=== PATIENT | male | born 1965 | race American Indian/Alaskan Native ===

== ENCOUNTER 2019-11-26 10:20 | Outpatient (CLI) | payer BC ==
[2019-11-26 10:54] LABS: Basophils # (Auto) 0.1 K/mm3 (0.0-0.1); Basophils % (Auto) 1.2 % (0.0-1.8); Eosinophils # (Auto) 0.1 K/mm3 (0.0-0.4); Eosinophils % (Auto) 2.2 % (0.0-4.3); Hemoglobin 13.4 gm/dl (11.8-15.2); Lymphocytes # (Auto) 2.1 K/mm3 (1.2-5.4); Lymphocytes % (Auto) 32.1 % (13.4-35.0); Mean Corpuscular HGB Conc 33 % (32-34); Mean Corpuscular Volume 86 fl (84-94); Monocytes # (Auto) 0.4 K/mm3 (0.0-0.8); Monocytes % (Auto) 5.7 % (0.0-7.3); Platelet Count 352 K/mm3 (140-440); Red Blood Count 4.78 M/mm3 (3.65-5.03); Red Cell Distribution Width 14.7 % (13.2-15.2)
[2019-11-26 10:56] LABS: Bilirubin,Urine NEG (Negative); Blood,Urine NEG (Negative); Color,Urine Yellow (Yellow); Mucus,Urine FEW /HPF; Protein,Urine <15 mg/dL mg/dL (Negative); Urobilinogen,Urine < 2.0 mg/dL (<2.0); WBC,Urine < 1.0 /HPF (0.0-6.0)
[2019-11-26 11:13] LABS: Alanine Aminotransferase 30 units/L (7-56); Albumin 4.2 g/dL (3.9-5); BUN/Creatinine Ratio 13; Blood Urea Nitrogen 10 mg/dL (9-20); Calcium 9.6 mg/dL (8.4-10.2); Chol/HDL Ratio 4.12 %; HDL Cholesterol 48 mg/dL (40-59); Hemolysis Index 3; LDL Cholesterol,Direct 142 mg/dL (50-130)
[2019-11-29 14:14] LABS: Vitamin D, 25-OH, D2 <4 ng/mL
== END 2019-11-26 10:21 | disposition home or self-care (01) ==
LOC: LAB 10:20
PROVIDERS: ATTEND Internal Medicine
DX: Z00.00 Encounter for general adult medical examination without abnormal findings (principal); Z13.29 Encounter for screening for other suspected endocrine disorder; Z13.21 Encounter for screening for nutritional disorder; Z13.220 Encounter for screening for lipoid disorders; N39.0 Urinary tract infection, site not specified; R39.11 Hesitancy of micturition
CPT/HCPCS: 36415; 80053; 80061; 81001; 82306; 82607; 83036; 84153; 84443; 85025

== ENCOUNTER 2019-12-06 13:27 | Outpatient (CLI) | payer BC ==
--- NOTE | 2019-12-06 15:42 | XRay Report ---
RIGHT HIP 2 VIEWS INDICATION / CLINICAL INFORMATION: Right hip pain. COMPARISON: None available. FINDINGS: BONES / JOINT(S): There are mild degenerative changes involving the right hip, more prominent superio rly. There are also similar-appearing degenerative changes involving the left hip. There is internal fixation of the left femur. Mild lower lumbar spondylosis is present. There is no evidence of fractur e, subluxation or destructive lesion. SOFT TISSUES: No significant abnormality. ADDITIONAL FINDINGS: None. IMPRESSION: Mild degenerative changes involving both hips. Signer Name: Eddy Francisco MD Signed: 12/06/2019 3:37 PM Workstation Name: [id number]
== END 2019-12-06 13:28 | disposition home or self-care (01) ==
LOC: XRAY 13:27
PROVIDERS: ATTEND Internal Medicine
DX: M16.11 Unilateral primary osteoarthritis, right hip (principal)

== ENCOUNTER 2020-03-25 05:53 | Day surgery (SDC) | payer BC ==
[~2020-03-25 05:53] MED LIST: LACTATED RINGERS 1,000 ML IV SCH
[2020-03-25] MEDS ORDERED: MIDAZOLAM 2 MG/2 ML INJ IV NR (06:52)
--- NOTE | 2020-03-25 06:57 | Anesthesia Day of Surgery ---
Anesthesia Day of Surgery - Day of Surgery Patient Examined: Yes Patient H&P Reviewed: Yes Patient is NPO: Yes Beta Blockers: Yes
--- NOTE | 2020-03-25 06:57 | Anesthesia Consultation ---
Anesthesia Consult and Med Hx Date of service: 03/25/20 - Airway Anesthetic Teeth Evaluation: Poor, Chipped ROM Head & Neck: Adequate Mental/Hyoid Distance: Adequate Mallampati Class: Class II Intubation Access Assessment: Good - Pulmonary Exam CTA: Yes - Cardiac Exam Cardiac Exam: RRR - Pre-Operative Health Status ASA Pre-Surgery Classification: ASA3 Proposed Anesthetic Plan: General - Pulmonary Hx Smoking: No Hx Sleep Apnea: No (HARSHIL PRE SCREEN HIGH RISK) - Cardiovascular System Hx Hypertension: Yes (X 8 YRS) Hx Cardia Arrhythmia: Yes (h/o tachcardia, controlled with medications, denies h/o chest pain) - Central Nervous System Hx Psychiatric Problems: No - Other Systems Hx Cancer: No
[2020-03-25] MEDS ORDERED: ceFAZolin/STERILE WATER 2 GM/20 ML SYRINGE IV NR (07:00)
[2020-03-25] MEDS ORDERED: LIDOCAINE MPF (2%) 20 MG/1 ML VIAL 5 ML ONE (07:20)
[2020-03-25] MEDS ORDERED: propofoL 200 MG/20 ML VIAL IV ONE (07:20)
[2020-03-25] MEDS ORDERED: HYDROmorphone 1 MG/1 ML INJ ONE (07:20)
[2020-03-25] MEDS ORDERED: ONDANSETRON 4 MG/2 ML INJ ONE (08:23)
[2020-03-25] MEDS ORDERED: WATER FOR IRRIG STERILE 2000 ML IR ONE (08:25)
--- NOTE | 2020-03-25 08:27 | Short Stay Summary ---
Short Stay Documentation Date of service: 03/25/20 - History H&P: obtained from office - Allergies and Medications Current Medications: Allergies No Known Allergies Allergy (Verified 03/20/20 14:41) Home Medications Medication Instructions Recorded Confirmed Last Taken Type Amlodipine Besylate [Norvasc] 5 mg PO DAILY 03/20/20 03/20/20 03/25/20 04:00 History Aspirin [Adult Aspirin] 81 mg PO DAILY 03/20/20 03/25/20 1 Week Ago History ~03/18/20 Valsartan [Diovan] 160 mg PO QDAY 03/20/20 03/20/20 03/25/20 04:00 History carvediloL [Coreg] 6.25 mg PO BID 03/20/20 03/20/20 03/25/20 04:00 History Active Medications Cefazolin Sodium (Cefazolin/Sterile Water 2 Gm/20 Ml Syringe) 2 gm IV PREOP NR Stop: 03/25/20 10:00 Lactated Ringer's (Lactated Ringers) 1,000 mls @ 125 mls/hr IV DIRECT KYLIE Last Admin: 03/25/20 06:55 Dose: 125 mls/hr Documented by: Midazolam HCl (Midazolam 2 Mg/2 Ml Inj) 2 mg IV ONCE NR Stop: 03/25/20 12:00 Last Admin: 03/25/20 06:58 Dose: 2 mg Documented by: - Brief post op/procedure progress note Date of procedure: 03/25/20 Pre-op diagnosis: bph, elevated psa Post-op diagnosis: same Procedure: cysto, rpg, pus 50cc, 12 core bx prostate Anesthesia: GETA Surgeon: BIANCA YU Estimated blood loss: minimal Pathology: list (prostate cores) Specimen disposition: to lab Condition: stable - Hospital course Hospital course: bactrim,norco,post op info on chart - Disposition Condition at discharge: Stable Disposition: DC-01 TO HOME OR SELFCARE Short Stay Discharge Plan Follow up with: MIGDALIA CARMEN MD [Primary Care Provider] - 7 Days
--- NOTE | 2020-03-25 08:37 | Operative Report ---
PREOPERATIVE DIAGNOSES: Elevated prostate-specific antigen of 6, benign prostatic hypertrophy. POSTOPERATIVE DIAGNOSES: Elevated prostate-specific antigen of 6, benign prostatic hypertrophy. PROCEDURE: Cystoscopy, bilateral retrograde pyelograms, transrectal ultrasound, biopsy of prostate (50 mL). SURGEON: Andre Medina MD ANESTHESIA: General. ESTIMATED BLOOD LOSS: Minimal. FLUIDS: Crystalloid. COMPLICATIONS: No complications. INDICATIONS: This patient is a 54-year-old gentleman seen in the office for an elevated PSA at 6 and mild prostate obstruction. He presents now for surgical intervention. DESCRIPTION OF PROCEDURE: The patient was taken to the operative suite, placed in a supine position. After adequate general anesthesia, placed in a dorsal lithotomy position, prepped and draped in a sterile fashion. Pancystourethroscopy was performed with a 22-Scottish [place]orz cystoscope, no urethral abnormalities. His prostate displayed mild bilobar obstruction. Bladder, no tumors or stones were noted. Both ureteral orifices in normal position. Bilateral retrograde pyelograms were obtained with an 8-Scottish [place] catheter and 8 mL of contrast with no filling defects or obstruction. Next, using a transrectal ultrasound, sagittal and transverse imaging was taken. No suspicious lesions could be appreciated. Prostate volume 50 mL. 12-core biopsy was taken, at the base, 4 at mid level and then 4 at the apex. Rectal exam was benign. His bladder was drained. He was extubated and taken to recovery room in stable condition. He will go home on Bactrim and [place]. JOB# [id number] [facility]
--- NOTE | 2020-03-25 08:55 | Fluoroscopy Report ---
CLINICAL INDICATION: ELEVATED PSA BPH TECHNICAL DATA: C-arm imaging was performed. Fluoroscopy time 4 seconds and 4 static images performed FINDINGS: C-arm imaging was performed. Retrograde pyelogram performed with excellent imaging of the left collec ting system. Small calyceal diverticulum is noted on the left IMPRESSION: Retrograde pyelogram as noted Signer Name: Castro Orosco MD Signed: 03/25/2020 8:50 AM Workstation Name: [id number]
--- NOTE | 2020-03-25 08:58 | Ultrasound Report ---
ULTRASOUND TRANSRECTAL HISTORY: Guidance for prostate biopsy, elevated PSA TECHNIQUE: Transrectal ultrasound. FINDINGS: Transrectal ultrasound guidance was provided by radiology during prostate biopsy by urology. Prostate volume measures 49.5 cc. The prosthetic urethra appears prominent which could represent previous TUR P changes. Please correlate with the procedural report as needed. IMPRESSION: Successful prostate biopsy under transrectal ultrasound guidance. Signer Name: Max Blackman Jr, MD Signed: 03/25/2020 8:53 AM Workstation Name: [id number]
[2020-03-25 09:47] VITALS: BP 119/72
--- NOTE | 2020-03-25 10:32 | Post Anesthesia Evaluation ---
- Post Anesthesia Evaluation Patient Participated: Yes Airway Patent: Yes Stable Respiratory Function: Yes Nausea/Vomiting: No Temp > 96.8F: Yes Pain Manageable: Yes Adequeate Hydration: Yes Anesthesia Complications: No Block Receding Appropriately: Not Applicable Patient on Ventilator: No
== END 2020-03-25 05:54 | disposition home or self-care (01) ==
LOC: OR 05:53
PROVIDERS: ATTEND Urology
DX: R97.20 Elevated prostate specific antigen [PSA] (principal); N40.0 Benign prostatic hyperplasia without lower urinary tract symptoms; I10 Essential (primary) hypertension; M19.90 Unspecified osteoarthritis, unspecified site; Z86.19 Personal history of other infectious and parasitic diseases; Z98.890 Other specified postprocedural states; Z79.899 Other long term (current) drug therapy; Z79.82 Long term (current) use of aspirin
CPT/HCPCS: 52005; 55700; 74420; 76872; 88305; 88344; A4217; J0690; J1170; J2250; J2405; J2704; Q9967; U0003

== ENCOUNTER 2020-04-14 07:07 | Outpatient (CLI) | payer BC ==
[2020-04-14 08:04] LABS: Chol/HDL Ratio 3.4 %
== END 2020-04-14 07:08 | disposition home or self-care (01) ==
LOC: LAB 07:07
PROVIDERS: ATTEND Internal Medicine
DX: E78.5 Hyperlipidemia, unspecified (principal); E55.9 Vitamin D deficiency, unspecified; D51.9 Vitamin B12 deficiency anemia, unspecified; R73.03 Prediabetes
CPT/HCPCS: 36415; 80061; 82306; 82607; 83036

== ENCOUNTER 2020-05-29 11:42 | Outpatient (CLI) | payer BC | END 2020-05-29 11:43 | disposition home or self-care (01) | LOC: LAB 11:42 | PROVIDERS: ATTEND Urology | DX: C61 Malignant neoplasm of prostate (principal) | CPT/HCPCS: 36415; 84153 ==

== ENCOUNTER 2020-08-24 08:06 | Outpatient (CLI) | payer BC ==
[2020-08-25 01:20] LABS: Chol/HDL Ratio 4.18 %
[2020-08-27 18:32] LABS: Vitamin D, 25-OH, D2 6 ng/mL
== END 2020-08-24 08:07 | disposition home or self-care (01) ==
LOC: LAB 08:06
PROVIDERS: ATTEND Internal Medicine
DX: E78.5 Hyperlipidemia, unspecified (principal); E55.9 Vitamin D deficiency, unspecified; R73.03 Prediabetes
CPT/HCPCS: 36415; 80061; 82306; 83036

== ENCOUNTER 2020-08-28 08:48 | Outpatient (CLI) | payer BC | END 2020-08-28 08:49 | disposition home or self-care (01) | LOC: LAB 08:48 | PROVIDERS: ATTEND Urology | DX: N40.0 Benign prostatic hyperplasia without lower urinary tract symptoms (principal) | CPT/HCPCS: 36415; 84153 ==

== ENCOUNTER 2020-09-08 07:34 | Outpatient (CLI) | payer BC ==
--- NOTE | 2020-09-08 10:13 | Magnetic Resonance Report ---
MRI RIGHT HIP WITHOUT CONTRAST INDICATION / CLINICAL INFORMATION: INJURY OF FEMORAL NERVE AT HIP AND THIGH LEVEL, groin area pain rt hip. TECHNIQUE: Multiplanar, multisequence MR images were obtained. No contrast used. COMPARISON: Radiographs dated 12/06/19 FINDINGS: ACETABULAR LABRUM: Degenerative fraying without discrete tear. ARTICULAR CARTILAGE: Moderate chondrosis and degenerative arthrosis especially at the superolateral h ip joint. LIGAMENTUM TERES: No significant abnormality. JOINT SPACE AND CAPSULE: No joint effusion or synovitis. No intra-articular bodies. GLUTEAL MUSCLES/TENDONS: No significant abnormality. ILIOPSOAS MUSCLES/TENDON: No significant abnormality. PROXIMAL HAMSTRING TENDONS: No significant abnormality. GROIN MUSCLES/TENDONS: No significant abnormality. SOFT TISSUES: No significant abnormality. Specifically, no nerve abnormality of the right hip. BONES: No significant bone marrow edema. No fracture. Moderately prominent pincer deformity of the s uperolateral acetabulum as seen on radiographs. Incidental note of contralateral left femoral intrame dullary pin. SACROILIAC JOINT(S): No significant abnormality. LOWER LUMBAR SPINE: No significant abnormality of visualized lower lumbar spine. SOFT TISSUE WITHIN PELVIS: No acute findings. ADDITIONAL FINDINGS: None. IMPRESSION: 1. No acute MR abnormality of the right hip. 2. Moderate right hip degenerative arthrosis with pincer deformity which can contribute to femoroacet abular impingement in the appropriate clinical setting. Signer Name: Segundo Muhammad MD Signed: 09/08/2020 10:08 AM Workstation Name: [id number]
== END 2020-09-08 07:35 | disposition home or self-care (01) ==
LOC: MRI 07:34
PROVIDERS: ATTEND Internal Medicine
DX: S74.10XA Injury of femoral nerve at hip and thigh level, unspecified leg, initial encounter (principal); M16.11 Unilateral primary osteoarthritis, right hip; X58.XXXA Exposure to other specified factors, initial encounter; Y93.89 Activity, other specified; Y92.89 Other specified places as the place of occurrence of the external cause; Y99.8 Other external cause status
CPT/HCPCS: 73721

== ENCOUNTER 2020-11-27 09:36 | Outpatient (CLI) | payer BC | END 2020-11-27 09:37 | disposition home or self-care (01) | LOC: LAB 09:36 | PROVIDERS: ATTEND Urology | DX: C61 Malignant neoplasm of prostate (principal) | CPT/HCPCS: 36415; 84153 ==

== ENCOUNTER 2020-12-04 07:01 | Outpatient (CLI) | payer BC ==
[2020-12-04] MEDS ORDERED: LIDOCAINE (2%) 20 MG/1 ML VIAL 20 ML MDV INFILTRATI ONE (07:42)
[2020-12-04] MEDS ORDERED: methylPREDNISolone ACETATE 40 MG/1 ML INJ INTRA-ARTI SCH (08:00)
--- NOTE | 2020-12-04 08:46 | Short Stay Summary ---
Short Stay Documentation Date of service: 12/04/20 Narrative H&P: chronic right hip pain - History Principal diagnosis: right hip pain, osteoarthritis - Allergies and Medications Current Medications: Allergies No Known Allergies Allergy (Verified 03/20/20 14:41) Home Medications Medication Instructions Recorded Confirmed Last Taken Type Amlodipine Besylate [Norvasc] 5 mg PO DAILY 03/20/20 03/20/20 03/25/20 04:00 History Aspirin [Adult Aspirin] 81 mg PO DAILY 03/20/20 03/25/20 1 Week Ago History ~03/18/20 Valsartan [Diovan] 160 mg PO QDAY 03/20/20 03/20/20 03/25/20 04:00 History carvediloL [Coreg] 6.25 mg PO BID 03/20/20 03/20/20 03/25/20 04:00 History - Physical exam General appearance: no acute distress Extremities: no ischemia, pulses intact, No edema, Full ROM - Brief post op/procedure progress note Date of procedure: 12/04/20 Pre-op diagnosis: right hip pain, arthritis Post-op diagnosis: same Procedure: right hip injection Anesthesia: local Findings: mild arthritic changes Surgeon: CONNIE SUMNER Estimated blood loss: none Pathology: none Condition: stable - Hospital course Hospital course: uneventful - Disposition Condition at discharge: Good Disposition: 01 HOME / SELF CARE / HOMELESS Short Stay Discharge Plan Follow up with: MIGDALIA CARMEN MD [Primary Care Provider] - 7 Days
--- NOTE | 2020-12-04 09:52 | Fluoroscopy Report ---
ARTHROGRAM OF THE RIGHT HIP HISTORY: UNILATERAL PRIMARY OSTEOARTHRITIS. COMPARISON: None. CONSENT: The risks,benefits, and alternatives of theprocedure were discussed with the patient who agr eed toproceed. TECHNIQUE: The patient was placed supine on the fluoroscopy table. The right hip joint was identifie d and overlying skin demarcated under fluoroscopic guidance. Area was prepped and draped in the usual sterile fashion. Time-out was performed. Skin and subcutaneous tissues were anesthetized with lid ocaine. A 22-gauge spinal needle was placed into the joint space under fluoroscopic guidance. A small amount of Omnipaque 180 contrast agent was injected to ensure intra-articular location. A mixture containing 1 cc of 40 mg of Depo-Medrol and 3 cc of 2% lidocaine were injected into the right hip joint as per the ordering physician's request. The patient tolerated the procedure without difficulty. FLUOROSCOPIC TIME: 1.3 minutes # IMAGES: 6 IMPRESSION: Successful fluoroscopy-guided right hip injection as described. Signer Name: Max Blackman Jr, MD Signed: 12/04/2020 9:47 AM Workstation Name: [id number]
== END 2020-12-04 07:02 | disposition home or self-care (01) ==
LOC: FLUORO 07:01
PROVIDERS: ATTEND Orthopaedic Surgery
DX: M16.11 Unilateral primary osteoarthritis, right hip (principal); Z79.899 Other long term (current) drug therapy
CPT/HCPCS: 27093; 73525; J1030; Q9965

== ENCOUNTER 2020-12-09 08:46 | Outpatient (CLI) | payer BC ==
[2020-12-09 09:18] LABS: Basophils # (Auto) 0.1 K/mm3 (0.0-0.1); Basophils % (Auto) 0.7 % (0.0-1.8); Eosinophils # (Auto) 0.1 K/mm3 (0.0-0.4); Eosinophils % (Auto) 1.2 % (0.0-4.3); Hematocrit 43.5 % (35.5-45.6); Lymphocytes # (Auto) 2.1 K/mm3 (1.2-5.4); Lymphocytes % (Auto) 27.6 % (13.4-35.0); Mean Corpuscular HGB Conc 32 % (32-34); Mean Corpuscular Volume 85 fl (84-94); Monocytes # (Auto) 0.4 K/mm3 (0.0-0.8); Monocytes % (Auto) 5.1 % (0.0-7.3); Platelet Count 389 K/mm3 (140-440); Red Blood Count 5.11 M/mm3 (3.65-5.03); Red Cell Distribution Width 14.8 % (13.2-15.2)
[2020-12-09 09:42] LABS: Alanine Aminotransferase 28 units/L (7-56); Albumin 4.1 g/dL (3.9-5); BUN/Creatinine Ratio 20; Blood Urea Nitrogen 14 mg/dL (9-20); Calcium 9.4 mg/dL (8.4-10.2); Chol/HDL Ratio 3.68 %; HDL Cholesterol 50 mg/dL (40-59); Hemolysis Index 7; LDL Cholesterol,Direct 131 mg/dL (50-130)
== END 2020-12-09 08:47 | disposition home or self-care (01) ==
LOC: LAB 08:46
PROVIDERS: ATTEND Internal Medicine
DX: Z00.00 Encounter for general adult medical examination without abnormal findings (principal); Z13.29 Encounter for screening for other suspected endocrine disorder; E11.9 Type 2 diabetes mellitus without complications; E78.5 Hyperlipidemia, unspecified; R97.20 Elevated prostate specific antigen [PSA]; E55.9 Vitamin D deficiency, unspecified
CPT/HCPCS: 36415; 80053; 80061; 83036; 84443; 85025

== ENCOUNTER 2020-12-22 10:12 | Outpatient (CLI) | payer BC ==
--- NOTE | 2020-12-22 11:06 | XRay Report ---
RIGHT SHOULDER HISTORY: Pain. COMPARISON: None. TECHNIQUE: 3 views of the right shoulder were obtained. FINDINGS: Bones: No evidence of acute fracture or dislocation. Ossific densities along the posterior lateral as pect of the proximal humerus is noted. This could represent the insertion site of the deltoid muscle. Joint spaces: Maintained. Soft tissues: No significant abnormality. Additional findings: None. IMPRESSION: Right shoulder without evidence of acute osseous injury. Likely an incidental finding is ossification along the cortex of the posterior lateral aspect of the proximal humerus. This is near the insertion site of the deltoid muscle and could represent some degr ee of enthesopathy. Recommend clinical correlation with site of pain. If there is pain in this region or additional evaluation is clinically indicated, a nonemergent CT or MRI may be considered. Signer Name: Montana Trevino MD Signed: 12/22/2020 11:02 AM Workstation Name: [id number]
== END 2020-12-22 10:13 | disposition home or self-care (01) ==
LOC: XRAY 10:12
PROVIDERS: ATTEND Internal Medicine
DX: M25.511 Pain in right shoulder (principal)

== ENCOUNTER 2021-03-03 09:49 | Outpatient (CLI) | payer BC | END 2021-03-03 09:50 | disposition home or self-care (01) | LOC: LAB 09:49 | PROVIDERS: ATTEND Urology | DX: C61 Malignant neoplasm of prostate (principal) | CPT/HCPCS: 36415; 84153 ==

== ENCOUNTER 2021-03-09 07:17 | Outpatient (CLI) | payer BC ==
--- NOTE | 2021-03-09 10:12 | Magnetic Resonance Report ---
EXAMINATION: MR UE joint RT woe con. HISTORY: UNSPECIFIED INJURY OF MUSCLES/TENDONS OF ROTATOR CUFF, DIFFICULTY LIFTING ARM ABOVE HEAD & S HOULDER PAIN TECHNIQUE: Multiplanar, multisequence MR images of the shoulder obtained without intravenous contrast . COMPARISON: 12/22/2020. FINDINGS: Muscles: Signal intensity and volume is preserved. Acromioclavicular joint: Moderate osteoarthritis. Subacromial/ subdeltoid bursa: Trace fluid accumulation. Rotator cuff: There is tendinosis with partial-thickness articular sided tearing of the leading edge of the supraspinatus tendon at the footprint. Mild tendinosis of the infraspinatus. Teres minor is in tact. Subscapularis is intact. Long head biceps tendon: The long head biceps tendon is appropriately positioned within the bicipital groove. There is increased signal within the intra-articular portion, consistent with tendinosis, wi thout discrete tear. Glenohumeral joint: No discrete labral abnormality. No full thickness chondral defect allowing for li mitations. No significant effusion. Bone: Marrow signal intensity is unremarkable. IMPRESSION: 1. Tendinosis of the supraspinatus with partial thickness articular sided tearing of the leading edge at the footprint. 2. Prominent tendinosis of the intra-articular long head biceps tendon. 3. Mild tendinosis of the infraspinatus without tear. 4. Moderate AC osteoarthritis. Signer Name: Chilango Mathias MD Signed: 03/09/2021 10:08 AM Workstation Name: [email or web address]
== END 2021-03-09 07:18 | disposition home or self-care (01) ==
LOC: MRI 07:17
PROVIDERS: ATTEND Internal Medicine
DX: S46.001A Unspecified injury of muscle(s) and tendon(s) of the rotator cuff of right shoulder, initial encounter (principal); S46.811A Strain of other muscles, fascia and tendons at shoulder and upper arm level, right arm, initial encounter; M19.011 Primary osteoarthritis, right shoulder; X58.XXXA Exposure to other specified factors, initial encounter; Y93.89 Activity, other specified; Y92.89 Other specified places as the place of occurrence of the external cause; Y99.8 Other external cause status

== ENCOUNTER 2021-03-30 07:18 | Outpatient (CLI) | payer BC ==
--- NOTE | 2021-03-30 10:59 | Nuclear Medicine Report ---
APPROVED REPORT Exam: Nuclear Stress Test Indication: Chest pain [facility] #: STRESS LAB 2 Ht: 6 ft 0 in Wt: 256 lbs BSA: 2.37 m2 HR: 70 bpmBP: 135/83 mmHgBMI: 34.71 Rhythm: SINUS RHYTHM WITH SINUS ARRHYTHMIA RSR WITH RIGHT VENTICULAR CONDUCTION DELAY Stress Test Details Stress Test: Exercise stress testing was performed using a Christo protocol. HR Resting HR: 70 bpm Max HR Achieved: 150 bpm Max Heart Rate (APMHR): 165.078617 bpm Target HR (85% APMHR): 140.770005 bpm % of APMHR: 90.91 Recovery HR: 95 bpm BP Resting BP: 135/83 mmHg Max BP: 206/89 mmHg Recovery BP: 179/85 mmHg ECG Resting ECG: SINUS RHYTHM WITH SINUS ARRHYTHMIA RSR CONSISTENT WITH RIGHT VENTICULAR CODUCTION DELAY Stress ECG: Sinus Tachycardia Clinical Reason for Termination: Maximal effort Stress Symptoms: None Exercise duration: 9 min 0 sec Exercise capacity: 10.3 METs Overall Exercise Capacity for Age: Good Angina Score: None NM EXAM: Myocardial Perfusion REST/STRESS Imaging Protocol: Rest Tc-99m/Stress Tc-99m 1 day Resting Data Rest SPECT myocardial perfusion imaging was performed in supine position 45 minutes following the intravenous injection of 10 mCi of Tc-99m Myoview. Time of rest injection: 729 Date: 03/30/2021 Exercise Stress At peak stress, the patient was injected intravenously with 28mCi of Tc-99m Myoview. Time of stress injection: 909 Date: 03/30/2021 Gated Stress SPECT was performed 30 minutes after stress injection. The images were gated to evaluate regional wall motion and calculate left ventricular ejection fraction. Study Quality Study: excellent Lung Uptake: Normal Study Data TID = 0.92. Perfusion Wall Motion The rest and stress images show normal left ventricular wall motion. Nuclear Conclusion ECG Findings: negative for ischemia Clinical Findings: negative for ischemia Nuclear Findings: negative for ischemia Exercise Capacity: normal Left Ventricular Function: normal 1. negative treadmill ekg 2. good exercise capacity 3. no exaggerated bp response to exercise Normal study. No scintigraphic evidence for myocardial ischemia or scar. Normal left ventricular size and function with no regional wall motion abnormalities.
== END 2021-03-30 07:19 | disposition home or self-care (01) ==
LOC: ECHO 07:18
PROVIDERS: ATTEND Internal Medicine
DX: R06.02 Shortness of breath (principal); R53.83 Other fatigue; R94.31 Abnormal electrocardiogram [ECG] [EKG]; I10 Essential (primary) hypertension; E78.2 Mixed hyperlipidemia; E66.09 Other obesity due to excess calories
CPT/HCPCS: 78452; 93017; A9502; C8929; 93306

== ENCOUNTER 2021-04-30 09:14 | Outpatient (CLI) | payer BC ==
[2021-04-30 10:00] LABS: Chol/HDL Ratio 2.64 %
== END 2021-04-30 09:15 | disposition home or self-care (01) ==
LOC: LAB 09:14
PROVIDERS: ATTEND Internal Medicine
DX: E11.9 Type 2 diabetes mellitus without complications (principal); E78.5 Hyperlipidemia, unspecified
CPT/HCPCS: 36415; 80061; 83036

== ENCOUNTER 2021-05-25 07:10 | Day surgery (SDC) | payer BC | END 2021-05-25 07:11 | disposition home or self-care (01) | LOC: LAB 07:10 | PROVIDERS: ATTEND Urology | DX: I10 Essential (primary) hypertension (principal); I42.9 Cardiomyopathy, unspecified; M19.90 Unspecified osteoarthritis, unspecified site; Z79.899 Other long term (current) drug therapy; Z79.82 Long term (current) use of aspirin | CPT/HCPCS: 36415; 84153 ==

== ENCOUNTER 2021-08-18 10:21 | Outpatient (CLI) | payer BC | END 2021-08-18 10:22 | disposition home or self-care (01) | LOC: LAB 10:21 | PROVIDERS: ATTEND Urology | DX: C61 Malignant neoplasm of prostate (principal) | CPT/HCPCS: 36415; 84153 ==

== ENCOUNTER 2021-09-03 08:59 | Outpatient (CLI) | payer BC ==
[2021-09-03 09:47] LABS: Chol/HDL Ratio 2.64 %
== END 2021-09-03 09:00 | disposition home or self-care (01) ==
LOC: LAB 08:59
PROVIDERS: ATTEND Internal Medicine
DX: E11.9 Type 2 diabetes mellitus without complications (principal); E78.5 Hyperlipidemia, unspecified
CPT/HCPCS: 36415; 80061; 83036

== ENCOUNTER 2021-09-22 08:40 | Outpatient (CLI) | payer BC ==
--- NOTE | 2021-09-22 09:52 | Cat Scan Report ---
CT ABDOMEN AND PELVIS WITHOUT CONTRAST HISTORY: malignant neoplasm of prostate COMPARISON: None. TECHNIQUE: Axial CT images were obtained through the abdomen and pelvis without IV contrast. Sagittal and coronal reformatted images. All CT scans at this location are performed using CT dose reduction for ALARA by means of automated exposure control. FINDINGS: CT ABDOMEN: Lung Bases: Clear. Liver: No significant abnormality. Biliary: No significant abnormality. Spleen: No significant abnormality. Unenlarged. Pancreas: No significant abnormality. Adrenals: No significant abnormality. Kidneys: No significant abnormality. Lymphatics: No lymphadenopathy. Vasculature: No significant abnormality. Bowel/Peritoneum: No significant abnormality. No free air. No free fluid. Minimal diverticulosis of t he distal colon is noted. Normal appendix. CT PELVIS: : No significant abnormality. Osseous Structures: No suspicious bony lesion is detected. Mild degenerative changes are noted in the thoracolumbar spine. Ankylosis of the SI joints. Previous internal fixation of the proximal left fem ur is partially imaged. Additional Findings: None IMPRESSION: No evidence for metastatic disease to the abdomen or pelvis on noncontrast CT. Signer Name: Max Blackman Jr, MD Signed: 09/22/2021 9:47 AM Workstation Name: [id number]
--- NOTE | 2021-09-22 13:08 | Nuclear Medicine Report ---
NUCLEAR MEDICINE BONE SCAN, WHOLE BODY INDICATION: PROSTATE CA C61. Initial staging of prostate cancer TECHNIQUE: 26.4 mCi of Tc-99m MDP were injected IV. Whole body images were obtained. COMPARISON: CT abdomen pelvis without contrast 09/22/2021. FINDINGS: Skeletal Structures: Fairly symmetric, likely degenerative uptake is present involving the shoulders , sternoclavicular joint, knees and spine. Uptake is most pronounced in the right shoulder region. Skeletal Lesions: None. Soft Tissues: Normal. Kidneys: Normal, symmetric activity. Additional Findings: None. IMPRESSION: No evidence for osseous metastasis. Degenerative findings as described. Signer Name: Max Blackman Jr, MD Signed: 09/22/2021 1:04 PM Workstation Name: [id number]
== END 2021-09-22 08:41 | disposition home or self-care (01) ==
LOC: NM 08:40
PROVIDERS: ATTEND Urology
DX: C61 Malignant neoplasm of prostate (principal); K57.30 Diverticulosis of large intestine without perforation or abscess without bleeding; M47.815 Spondylosis without myelopathy or radiculopathy, thoracolumbar region
CPT/HCPCS: 74176; 78306; A9503

== ENCOUNTER 2021-10-27 08:11 | Day surgery (SDC) | payer BC ==
[~2021-10-27 08:11] MED LIST changes: -LACTATED RINGERS 1,000 ML IV SCH; +SODIUM CHLORIDE 0.9% 1000 ML 1,000 ML IV SCH
--- NOTE | 2021-10-27 08:46 | Anesthesia Consultation ---
Anesthesia Consult and Med Hx Date of service: 10/27/21 - Airway Anesthetic Teeth Evaluation: Good ROM Head & Neck: Adequate Mental/Hyoid Distance: Adequate Mallampati Class: Class I Intubation Access Assessment: Probably Good - Pulmonary Exam CTA: Yes - Cardiac Exam Cardiac Exam: RRR - Pre-Operative Health Status ASA Pre-Surgery Classification: ASA3 Proposed Anesthetic Plan: MAC - Pulmonary Hx Smoking: No Hx Sleep Apnea: No (HARSHIL PRE SCREEN HIGH RISK) - Cardiovascular System Hx Hypertension: Yes Hx Cardia Arrhythmia: Yes (h/o tachcardia, controlled with medications, denies h/o chest pain) - Central Nervous System Hx Psychiatric Problems: No - Endocrine Hx Renal Disease: No Hx Liver Disease: No Hx Non-Insulin Dependent Diabetes: Yes Hx Thyroid Disease: No - Other Systems Hx Alcohol Use: No Hx Substance Use: No Hx Cancer: No Hx Obesity: Yes (BMI 37) - Additional Comments Anesthesia Medical History Comments: no hx of anesthesia complications
[2021-10-27] MEDS ORDERED: propofoL 200 MG/20 ML VIAL IV ONE (08:51)
--- NOTE | 2021-10-27 08:53 | Anesthesia Day of Surgery ---
Anesthesia Day of Surgery - Day of Surgery Patient Examined: Yes Patient H&P Reviewed: Yes Patient is NPO: Yes
--- NOTE | 2021-10-27 09:10 | Operative Report ---
Operative Report Operative Report: DOS: 10/27/21 SURGEON: Simone Vasquez MD COLONOSCOPY WITH COLD SNARE POLYPECTOMY REPORT PREOPERATIVE AND POSTOPERATIVE DIAGNOSIS: screening colonoscopy DESCRIPTION OF PROCEDURE: The colonoscope was passed to the terminal ileum as identified by the ileal tissue. Scope was carefully withdrawn. Retroflexion was performed in the rectum. At the end of procedure, the scope was cleaned using normal technique. Vital signs monitored continuously throughout. SEDATION: Provided by Anesthesiology Services. Quality of the prep was good COMPLICATIONS: None. ESTIMATED BLOOD LOSS: minimal FINDINGS: * Normal terminal ileum * scattered diverticulosis throughout the sigmoid colon * 3 sessile polyps in the sigmoid colon, ranging in size from 3 to 6 mm, removed by cold snare polypectomy * Internal and external hemorrhoids * Remainder of exam unremarkable RECOMMENDATIONS: Surveillance colonoscopy based upon pathology results, 3 or 5 years
[2021-10-27 10:19] VITALS: BP 122/77
--- NOTE | 2021-10-27 10:35 | Post Anesthesia Evaluation ---
- Post Anesthesia Evaluation Patient Participated: Yes Airway Patent: Yes Stable Respiratory Function: Yes Nausea/Vomiting: No Temp > 96.8F: Yes Pain Manageable: Yes Adequeate Hydration: Yes Anesthesia Complications: No
== END 2021-10-27 09:50 | disposition home or self-care (01) ==
LOC: GIO 08:11
PROVIDERS: ATTEND Student in an Organized Health Care Education/Training Program
DX: Z12.11 Encounter for screening for malignant neoplasm of colon (principal); K57.30 Diverticulosis of large intestine without perforation or abscess without bleeding; K64.8 Other hemorrhoids; D12.5 Benign neoplasm of sigmoid colon; K63.89 Other specified diseases of intestine; I42.9 Cardiomyopathy, unspecified; E78.00 Pure hypercholesterolemia, unspecified; I10 Essential (primary) hypertension; E66.9 Obesity, unspecified; M19.90 Unspecified osteoarthritis, unspecified site; E11.9 Type 2 diabetes mellitus without complications; Z79.899 Other long term (current) drug therapy; Z79.82 Long term (current) use of aspirin; Z85.46 Personal history of malignant neoplasm of prostate; Z98.890 Other specified postprocedural states; Z68.37 Body mass index [BMI] 37.0-37.9, adult
CPT/HCPCS: 45385; 82962; 88305; J2704; J7030